=== PATIENT | male | born 1965 | race Caucasian/White ===

== ENCOUNTER 2019-06-17 10:48 | Emergency (ER) | payer OTHER ==
[~2019-06-17] VITALS: Ht 172.7 cm; Wt 72.6 kg
[2019-06-17] MEDS ORDERED: LIPITOR20 MG PO (11:24)
[2019-06-17] MEDS ORDERED: TAMS0.4C PO (11:24)
[2019-06-18] MEDS ORDERED: PHENAZOPYRIDIN100 MG PO (10:21)
[2019-06-18] MEDS ORDERED: LEVAQUIN750 MG (10:21)
== END 2019-06-17 15:57 | disposition home or self-care (01) ==
LOC: ER 10:48
DX: N20.0 Calculus of kidney (principal); N39.0 Urinary tract infection, site not specified

== ENCOUNTER 2019-06-18 10:07 | Emergency (ER) | payer OTHER ==
[~2019-06-18] VITALS: Ht 172.7 cm; Wt 74.8 kg
[~2019-06-18 10:07] MED LIST: LIPITOR20 MG PO; TAMS0.4C PO
[2019-06-18] MEDS ORDERED: LEVAQUIN750 MG (10:21)
[2019-06-18] MEDS ORDERED: PHENAZOPYRIDIN100 MG PO (10:21)
== END 2019-06-18 12:28 | disposition home or self-care (01) ==
LOC: ER 10:07
DX: J11.1 Influenza due to unidentified influenza virus with other respiratory manifestations (principal)